=== PATIENT | male | born 1990 | race Caucasian/White ===

== ENCOUNTER 2017-05-07 08:10 | Emergency (ER) | payer MEDICAID ==
[~2017-05-07] VITALS: Ht 132.1 cm; Wt 54.4 kg
[2017-05-07] MEDS ORDERED: LORAZEPAM 2 MG/1 ML VIAL ONE (08:26)
[2017-05-07] MEDS ORDERED: keppra (08:28)
[2017-05-07] MEDS ORDERED: CLON0.1T PO (08:28)
[2017-05-07] MEDS: LORAZEPAM 2 MG/1 ML VIAL IV ONE (08:31)
--- NOTE | 2017-05-07 08:50 | NUR ---
Patient is resting comfortably in bed with eyes closed. PATIENT IS PAIN FREE AT THIS TIME.
[2017-05-07 09:48] LABS: BASOPHILS % (AUTO) 0.8 % (0.0-2.0); EOSINOPHILS # (AUTO) 0.1 K/uL (0.0-0.7); EOSINOPHILS % (AUTO) 1.2 % (0.0-7.0); HEMATOCRIT 40.1 % (36.7-47.1); HEMOGLOBIN 13.2 g/dL (12.5-16.3); LYMPHOCYTES # (AUTO) 0.6 K/uL (20.0-40.0); LYMPHOCYTES % (AUTO) 11.2 % (20.5-51.5); MEAN CORPUSCULAR HEMOGLOBIN 29.6 uug (23.8-33.4); MEAN CORPUSCULAR HGB CONC 33 g/dL (32.5-36.3); MEAN CORPUSCULAR VOLUME 90.2 fL (73.0-96.2); MONOCYTES # (AUTO) 0.3 K/uL (2.0-10.0); MONOCYTES % (AUTO) 6.3 % (0.0-11.0); NEUTROPHILS # (AUTO) 4.4 K/uL (1.8-8.9); NEUTROPHILS % (AUTO) 80.5 % (38.5-71.5); PLATELET COUNT (AUTO) 184 K/uL (152-348); RED BLOOD CELL COUNT(AUTO) 4.44 MIL/uL (4.06-5.63); WHITE BLOOD COUNT (AUTO) 5.4 K/uL (3.6-10.2)
[2017-05-07 09:55] LABS: CREATININE 7.2 mg/dL (0.6-1.3); POTASSIUM 4.1 mmol/L (3.5-5.1)
--- NOTE | 2017-05-07 12:20 | NUR ---
Patient is eating lunch tray with good appetite.
--- NOTE | 2017-05-07 12:23 | NUR ---
No seizure activity in ER seen, IV removed. Catheter intact and site benign. Pressure and 4x4 gauze applied to site. No bleeding noted. Patient discharged to home in stable conditon. Written and verbal after care instructions given to patient. Patient verbalizes understanding of instructions. Lunch tray was called again. Patient says that he will take a taxi ride to go home.
== END 2017-05-07 12:37 | disposition home or self-care (01) ==
LOC: ER 08:10
DX: R56.9 Unspecified convulsions (principal); N19 Unspecified kidney failure; I10 Essential (primary) hypertension; Z79.899 Other long term (current) drug therapy
CPT/HCPCS: 36415; 70450; 85025; A4663; J2060